=== PATIENT | female | born 1980 | race Hispanic/Latino ===

== ENCOUNTER → 2018-01-31 | Outpatient (CLI) | payer OTHER ==
[~2018-01-31] MED LIST: ACET1TAB12 PO; ESCI10TA PO; LEVO75TA4 PO; MULT-1192 PO; TOPI100T31 PO
== END | disposition home or self-care (01) ==
LOC: OIH 09:05
PROVIDERS: ATTEND Internal Medicine Cardiovascular Disease
DX: Z13.6 Encounter for screening for cardiovascular disorders (principal)
CPT/HCPCS: 75571

== ENCOUNTER → 2020-01-02 | Outpatient (CLI) | payer BC ==
--- NOTE | 2020-01-02 23:23 | NUR ---
PATIENT CURRENT MEDICATIONS: TOPAMAX 100MG, SYNTHROID .75MG, NORVASC 5MG, LOSARTAN 100MG, LEXAPRO 10MG, MULTIVITAMIN. Addendum: 01/02/20 at 2325 by SIVAKUMAR CHAMBERS Amended: Links added.
== END | disposition home or self-care (01) ==
LOC: SLP 20:57
PROVIDERS: ATTEND Internal Medicine Cardiovascular Disease
DX: G47.33 Obstructive sleep apnea (adult) (pediatric) (principal); R53.83 Other fatigue
CPT/HCPCS: 95810